=== PATIENT | female | born 2000 | race Caucasian/White ===

== ENCOUNTER → 2023-08-01 08:42 | Outpatient (CLI) | payer OTHER, MEDICAID, SELFPAY ==
--- NOTE | 2023-08-01 08:44 | DI.US.S_ITS ---
PROCEDURE: US OB >= 14 WEEKS FETUS INDICATIONS: OUTSIDE/PRIOR DATING DATA: Last menstrual period (LMP): 03/12/2023. LMP-based estimated date of delivery (BOBBY): 12/17/2023 First dating scan (date and location): 06/21/2023 Estimated date of delivery (BOBBY) from first dating scan: 12/19/2023 TECHNIQUE: Real-time scanning was performed of the fetus, with image documentation and biometric measurements. Endovaginal scanning: None COMPARISON: None. FINDINGS: General: A single living intrauterine gestation is present. Presentation: Variable. Placenta: Placental position is posterior , without previa. Amniotic fluid index: 12.8 cm, normal range is 5-24 cm. Single deepest vertical pocket is 3.8 cm heart rate: 153 beats per minute. Maternal cervical canal: 3.6 cm long. Normal lower limit is 2.5 cm. biometrics: Biparietal diameter: 4.6 cm, 20 week 0 day Head circumference: 17.2 cm, 19 week 5 day Abdominal circumference: 15.0 cm, 20 week 2 day Femur length: 3.1 cm, 19 week 4 day Clinically estimated gestational age: 20 week 2 day Composite gestational age from present scan: 19 week 6 day Estimated weight and percentile: 321 g, 26 percentile Anatomic survey: Neuro: Ventricles are non-dilated at less than 10 mm. Cisterna magna is normal at 3-11 mm. Cerebellum is normal in size and morphology. Nuchal skin fold: Normal at less than 6 mm between 14-21 weeks gestational age. Face: Nose and lips, facial profile are normal. Spine: No evidence for spina bifida. Heart: 4-chambered heart is present, with normal ventricular outflow tracts. Diaphragm: Diaphragm is intact. Stomach: Left-sided stomach is present. Kidneys: No hydronephrosis. Normal is less than 5 mm in 2nd trimester, less than 7 mm in 3rd trimester. Cord: 3-vessel cord has orthotopic insertion. Bladder: Normal in size. Extremities: All 4 extremities identified. IMPRESSION: Single live intrauterine consistent with 19 week 6 day gestation by current ultrasound Approved by: Julian Odell M.D. on 08/01/2023 at 13:29
== END ==
PROVIDERS: Referring Provider Student in an Organized Health Care Education/Training Program; Visit Provider Student in an Organized Health Care Education/Training Program
DX: Z34.02 Encounter for supervision of normal first pregnancy, second trimester (principal); Z3A.19 19 weeks gestation of pregnancy
CPT/HCPCS: 76811

== ENCOUNTER 2023-08-26 09:20 | Outpatient (CLI) | payer OTHER, SELFPAY ==
[2023-08-26 09:58] LABS: Appearance Urine UA CLEAR; Bilirubin Urine UA NEGATIVE (NEGATIVE); Color Urine UA YELLOW; Glucose Urine UA NEGATIVE (Negative); Ketones Urine UA TRACE (NEGATIVE); Leukocyte Esterase Urine UA NEGATIVE (NEGATIVE); Nitrite Urine UA NEGATIVE (Negative); Occult Blood Urine UA NEGATIVE (Negative); Protein Urine UA NEGATIVE (Negative); Specific Gravity Urine UA 1.025 (1.000-1.035)
[2023-08-26 10:00] LABS: pH Urine UA 5.5 (4.5-8.0)
[2023-08-26 10:07] LABS: Bacteria Urine Moderate (10-30); Culture Indicated Urine Specimen Cultured; RBC Urine 1-5/HPF (0-5/HPF); Squamous Epithelial Cell Urine 5-10 /HPF (0-5/HPF); WBC Urine 5-10/HPF (0-5/HPF)
== END 2023-08-26 10:25 | disposition home or self-care (01) ==
LOC: LABOR 10:28 → OB 09-01 16:01
PROVIDERS: Referring Provider Obstetrics & Gynecology; Visit Provider Obstetrics & Gynecology
DX: O60.02 Preterm labor without delivery, second trimester (principal); Z3A.23 23 weeks gestation of pregnancy
CPT/HCPCS: 59025; 81001; 87086; G0378; G0379

== ENCOUNTER → 2023-09-21 12:41 | Outpatient (CLI) | payer OTHER, SELFPAY ==
[2023-09-21 15:07] LABS: Hematocrit 35.9 % (36-46); Hemoglobin 12.6 g/dL (12.0-16.0)
[2023-09-21 15:36] LABS: GTT (PREG) 1 Hour PP 50gm Dose 105 mg/dL (76-139)
== END ==
PROVIDERS: Referring Provider Student in an Organized Health Care Education/Training Program; Visit Provider Student in an Organized Health Care Education/Training Program
DX: Z34.02 Encounter for supervision of normal first pregnancy, second trimester (principal)
CPT/HCPCS: 36415; 82950; 85014; 85018

== ENCOUNTER 2023-11-07 20:52 | Outpatient (CLI) | payer OTHER, SELFPAY | END 2023-11-07 22:38 | disposition home or self-care (01) | LOC: OB 11-10 15:45 | PROVIDERS: PCP Student in an Organized Health Care Education/Training Program; Referring Provider Obstetrics & Gynecology; Visit Provider Obstetrics & Gynecology | DX: O36.8130 Decreased fetal movements, third trimester, not applicable or unspecified (principal); Z3A.34 34 weeks gestation of pregnancy | CPT/HCPCS: 59025; G0378; G0379 ==

== ENCOUNTER → 2023-11-10 09:28 | Outpatient (CLI) | payer OTHER, SELFPAY ==
[2023-11-25 12:42] LABS: Strep Grp B PCR NEG for Grp B Strep
== END ==
PROVIDERS: PCP Student in an Organized Health Care Education/Training Program; Visit Provider Student in an Organized Health Care Education/Training Program
DX: Z34.93 Encounter for supervision of normal pregnancy, unspecified, third trimester (principal); Z3A.34 34 weeks gestation of pregnancy
CPT/HCPCS: 87653

== ENCOUNTER 2023-12-25 18:07 | Inpatient (IN) | payer OTHER, SELFPAY ==
[2023-12-25 18:20] VITALS: BP 133/86
--- NOTE | 2023-12-25 18:49 | PM.OBHP.1 ---
OB HPI Date/Time Date of admission: 12/25/23 Date Patient Seen: 12/25/23 Time Patient Seen: 18:49 History of Present Condition Chief complaint: induction : 1 Para: 0 Estimated Date of Delivery: 12/17/23 Estimated Gestational Age (weeks): 41w1d Narrative: Dayanna Phelps is a 23 year old at 41w1d presenting for medical induction for late term . has been uncomplicated. She has not been meron at home and has not any vaginal bleeding or discharge. Bedside ultrasound done 72 hours ago showed cephalic presentation with heart rate in the 120s, movement was seen, tone was good and breathing was visualized. On that imaged spine was and 2 maternal left with legs on maternal right. head position LOT. She is GBs negative. Indications Indication for induction OB: post dates History of Present care: good care Dating criteria: LMP confirmed by 1st trimester US Ultrasounds: normal 1st trimester US and normal mid trimester US Obstetrical complications: none Medical complications: none Preadmission Labs Blood type: O (+) positive -: Antibody screen: negative, GBS status: negative, HBsAG: negative, HIV: negative and RPR/VDLR: negative -: Rubella: immune and Varicella: immune HCAB: negative PAP: Normal Cell-free DNA: [id number] negative ( neg for trisomy 21, 19, 13), male sex 1 hr GTT: 105 PFSH Medical History (Updated 10/10/23 @ 10:18 by Vonnie Almanza MD) Actinic keratosis (~2009) Chlamydia (~2017) Panic anxiety syndrome Laceration of face Anxiety Major depression, single episode Surgical History (Updated 06/23/23 @ 14:04 by Trista Cordova RN) [place] teeth extracted Family History (Updated 06/23/23 @ 14:06 by Trista Cordova RN) Grandmother Coagulopathy Social History marital status: unmarried,living together number of children: 0 household members: significant other lives independently: Yes caregiver/support person: No housing: house pets and animals: Yes (cat & dog, aware of toxo precautions) education level: high school 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) current occupational exposures/hazards: No special rebeka needs: No travel history: recent (domestic only) seatbelt use: always helmet use: Yes water heater temp set < 120 deg: Yes working smoke detector in home: Yes fire extinguisher in home: Yes carbon monox detector in home: Yes firearms in home: Yes do you feel safe at home: Yes Smoking Status: Never smoker Tobacco: How many years used: 3 second hand exposure: No alcohol intake: former (~3/week when not ) substance use type: does not use (not since teenage) during the past year weight has: remained stable well-balanced diet: daily or most days daily servings fruits/ve or more times/day caffeine: Yes Type(s) of exercise: walking, other (hiking) and running frequency: daily Meds Home Medications and Allergies Home Medications Medication Instructions Recorded Confirmed Type vitamin-ferrous sulfate tab PO 06/23/23 12/22/23 History 27 mg iron-folic acid 0.8 mg tablet Allergies Allergy/AdvReac Type Severity Reaction Status Date / Time No Known Drug Allergies Allergy Verified 12/22/23 08:59 Review of Systems Review of Systems Narrative: No VB no Ernst No contractions No discharge No LOF OB Exam Vital signs Blood Pressure: 133/86 Pulse Rate: 88 Temperature: 36.5 F Narrative Exam Narrative: Gen: well appearing, NAD Psych: Appropriate mood and affect CV: warm and well perfused Pulm: breathing comfortbaly on RA : nml external genitalia SVE: fingertip/thick/high/posterior/firm, Sykes score 0, unfavorable cervix FHT: Baseline- 120 Accels: present Decelerations: none TOCO: occasional, irregular Cat I Assessment and Plan Assessment and Plan Assessment and Plan narrative: 23-year-old at 40 weeks 1d GA by LMP consistent with 1st trimester dating ultrasound presenting for post dates induction. Patient score unfavorable, we will start Cytotec. Consider trying to place Morrell balloon in the a.m. after a few doses of Cytotec 1. mIOL: -start vaginal Cytotec 25 mcg per dose -type and screen and CBC collected -intermittent monitoring, reactive and reassuring at this time -GBS negative, no PPX needed -epidural available if desired, currently unsure of plans -significant other Tommie at bedside
[2023-12-25 19:05] LABS: Add Manual Diff / Slide Review NO; Basophils Absolute Auto 100 /uL (0-100); Basophils Percent Auto 0.5 % (0-2); Eosinophils Absolute Auto 200 /uL (0-450); Hematocrit 38.5 % (36-46); Hemoglobin 13.3 g/dL (12.0-16.0); Lymphocytes Absolute Auto 2000 /uL (1100-4500); Mean Corpuscular HGB Conc 34.5 % (30-36); Mean Corpuscular Hemoglobin 31.2 PG (26-34); Mean Corpuscular Volume 90.3 fL (80-100); Monocytes Absolute Auto 900 /uL (0-900); Monocytes Percent Auto 6.1 % (3-14); Neutrophils Absolute Auto 11500 /uL (1500-7000); Neutrophils Percent Auto 78.4 % (50-75); Platelet Count 225 X10^3/uL (150-400); Red Blood Cell Count 4.26 X10^6/uL (4.0-5.2); Red Cell Distribution Width 13.4 % (11.6-14.8); White Blood Cell Count 14.6 X10^3/uL (4.5-11.0)
[2023-12-25 19:13] VITALS: BP 133/86; PULSE 88; TEMP 2.5; TEMP 36.5
[2023-12-25] MEDS: miSOPROStoL 25 MCG TABLET 50 MCG SL (19:58)
[2023-12-25] MEDS: ACETAMINOPHEN 325 MG TABLET 650 MG PO (23:39)
[2023-12-25] MEDS: ZOLPIDEM 5 MG TABLET PO (23:39)
[2023-12-25] MEDS: ONDANSETRON 4 MG/2 ML INJ IV (23:54)
--- NOTE | 2023-12-26 02:08 | PM.AN.REGBLK ---
Regional Block Pre-procedure Procedure: Continuous Lumbar Epidural for L&D Attending OB provider: Deandra Wells PMH/ROS narrative: at 41+ IOL for post dates. No medical or obstetric complicaitons. ASA Class: II Labs: Hct 38.5 % (36-46) 12/25/23 18:35 Plt Count 225 X10^3/uL (150-400) 12/25/23 18:35 Medications: Current Medications Generic Name Dose Route Start Last Admin Trade Name Freq PRN Reason Stop Dose Admin Acetaminophen 650 mg 12/25/23 18:33 12/25/23 23:39 Acetaminophen 325 Mg Tablet PO 650 mg Q4HR PRN Administration Fever/Mild Pain (1-3) Calcium Carbonate 500 mg 12/25/23 18:33 Calcium Carbonate 500 Mg Tab PO Q2H PRN Dyspepsia Hydroxyzine HCl 50 mg 12/25/23 23:04 Hydroxyzine Hcl 25 Mg Tablet PO Q6H PRN Sleep Lactated Ringer's 1,000 mls @ 100 mls/hr 12/25/23 18:45 Lactated Ringers IV CONT JANIA Misoprostol 25 mcg 12/25/23 18:45 Misoprostol 25 Mcg Tablet VAG Q4H JANIA Misoprostol 50 mcg 12/25/23 21:00 12/25/23 19:58 Misoprostol 25 Mcg Tablet SL 50 mcg QID JANIA Administration Morphine Sulfate 2 mg 12/25/23 18:33 Morphine 2 Mg/Ml Inj IV Q4HR PRN Pain, Moderate (4-6) Ondansetron HCl 4 mg 12/25/23 18:35 12/25/23 23:54 Ondansetron 4 Mg/2 Ml Inj IV 4 mg Q6HR PRN Administration Nausea And Vomiting Ondansetron HCl 4 mg 12/25/23 18:35 Ondansetron 4 Mg Odt SL Q6HR PRN Nausea Zolpidem Tartrate 5 mg 12/25/23 23:11 12/25/23 23:39 Zolpidem 5 Mg Tablet PO 5 mg BEDTIME PRN Administration Sleep Allergies: Allergies Allergy/AdvReac Type Severity Reaction Status Date / Time No Known Drug Allergies Allergy Verified 12/22/23 08:59 Procedure Insertion date: 12/26/23 Insertion time: 02:27 Prep/Local: betadine x3 and 1% lidocaine Interspace: L3-4 Patient position: sitting Needle: 18 gauge Hustead (CSE: 27g pencan through Hustead, clear CSF, 1mL 0.25% PF bupiv) Loss of resistance with: saline NATALEE at (cm): 4 Catheter placed at SKIN (cm): 10 Catheter in SPACE (cm): 6 Insertion: No CSF, No Blood, No Paresthesia with insertion, No Paresthesia with injection and No Test dose reaction Initial Medications TEST DOSE time: 02:28 TEST DOSE: 1.5% lidocaine with epinephrine 1:200k (mL): 3 BOLUS DOSE time: 02:36 BOLUS DOSE (mL): 4 BOLUS DOSE med: other (infusate) Infusion INFUSION: 0.125% bupivacaine and with fentanyl 2 mcg/mL Initial rate (mL/hr): 8 Subsequent interventions: PCEA 8+4 Post-procedure Anesthesia date START: 12/26/23 Anesthesia time START: 02:15 Anesthesia date END: 12/26/23 Anesthesia time END: 10:04 Post-procedure Anesthesia Assessment: Yes CV function: HR/BP stable, Yes Resp function: RR/sat/airway adequate, Yes Post-op hydration adequate, Yes Pain control adequate, Yes Nausea & vomiting absent, Yes Temperature > 36 C, Yes Mental status appropriate and No Anesthesia complications
--- NOTE | 2023-12-26 06:46 | P.PNOB_ITS ---
Date/Time Date Patient Seen: 12/26/23 Time Patient Seen: 06:30 Pain Control Pain control: epidural Pelvic Exam Dilation (cm): 9 Effacement (%): 100 station: -1 Amniotic membrane status: Ruptured Comments: SVE: 06/12/1/ bulging bag. Cervix gone on maternal left, cervix remains on maternal right only. No edema noted. AROM performed at 6:32am. Procedure note: Discussed risks of AROM with pt, pt agreeable. Large bulging bag palpated on exam, head well engaged. Membranes ruptured wtih [place]. Head remained well engaged. clear fluids. No sign of cord on exam. FHT reassuring initially after. Attempted to turn to maternal right to assist with cervical change but deceleration noted so moved back to center. decels resolved and FHT reassuring since then Contractions Contractions on admission: irregular Monitor mode: External Contraction frequency (min): 2 Contraction pattern: Regular Status status: Category ll Heart Rate Baseline: 120 Monitor Accelerations: Present Monitor Decelerations: Late and Variable Monitor Variability: Moderate Comments: Baseline- 120 Aceels- present Decels- Present, variables and rare lates with good variability in between, not occuring with every contraction, decelerations are shallow TOCO- every 1-2 min, regular CAt II Assessment and Plan Assessment: active labor Plan: continuous present management Comments: 23 year old at 41w2d presenting for medical induction for late term pregn [place]. Induction was started with one dose of oral cytotec and she began meron. She had an epidural placed overnight. SHe has been contractng regularly and making good cervical change. 1. mIOL for post-dates : - s/p 1 dose oral miso - Epidural in place for pain control - FHT showing variable decelerations wtih contractions but reassuring between - Continue expectant management for now - GBS negative, no ppx needed
[2023-12-26] MEDS: FENT 2MCG/ML BUPIV 0.125% EPI 200 MCG/100 ML PLAST..BAG 8 MCG EPIDURAL (08:00)
[2023-12-26] MEDS: OXYTOCIN PREMIX 30 UNIT/500 ML PLAST..BAG 250 UNIT IV (10:00)
--- NOTE | 2023-12-26 10:40 | PM.OBPRVD ---
Events: Labor Induction (with SL cytotec) Labor & Delivery Delivery date: 12/26/23 Cervical ripening method: per misoprostal protocol Induction method: AROM Delivery monitor: external FHT Route of delivery: Episiotomy description: None L&D Laceration Description: Vaginal - 1st Degree Delivery repair: vicryl Estimated blood loss (mL): 250 Anesthesia Type: Epidural Narrative: 23 y/o G1 now P admitted for [facility] for late term . FHR were reassuring, Category 1. She did not require GBS prophylaxis as her GBS was negative. was uncomplicated. Induction was started with 1 dose of sublingual misoprostol. AN epidural was placed for anesthesia. The patient developed regular contraction patterns without additional dosing of misoprostol. Rupture of membranes was completed approximately 12 hours later with clear fluid. heart tracing was reassuring during this time. She continued to progress and reached complete cervical dilation. Pushing was initiated. heart tracing did show variable decelerations which improved with position changes. When getting close to delivery heart tracing did show baseline tachycardia to the mid 160s to low 170s but variability was moderate and she was progressing well. was delivered out of JACEY position. A tight nuchal cord was noted and delivered through. After delivery of the body a body cord was also noted and reduced after delivery. The infant's body was then delivered in the usual manner without difficulty. The cord was clamped and cut after 60 second delay. The infant was placed on maternal abdomen. APGARs were 8 and 9 at one and five minutes respectively. The placenta delivered intact with 3 vessel cord and marginal cord insertion. Pitcin was started after deliveyr of the . Uterine massage was performed and fundus was found to be firm. EBL= 250mL. The perineum was inspected and a 1st degree posterior vaginal laceration was noted. This was repaired in the usual fashion with 3-0 vicryl. Pt tolerated the procedure well. Plan for aftercare: Routine care
[2023-12-26] MEDS: ACETAMINOPHEN 325 MG TABLET 650 MG PO ×2 (12:10→17:58)
[2023-12-26] MEDS: DERMOPLAST SPRAY 20% 60 ML 1 SPRAY TOP (12:10)
[2023-12-26] MEDS: KETOROLAC 30 MG/ML VIAL 15 MG IV (14:31)
[2023-12-26] MEDS: IBUPROFEN 600 MG TABLET PO (20:40)
[2023-12-27] MEDS: IBUPROFEN 600 MG TABLET PO ×2 (03:11→09:35)
[2023-12-27] MEDS: ACETAMINOPHEN 325 MG TABLET 650 MG PO ×2 (03:11→09:35)
[2023-12-27 06:16] LABS: Add Manual Diff / Slide Review NO; Basophils Absolute Auto 100 /uL (0-100); Basophils Percent Auto 0.9 % (0-2); Eosinophils Absolute Auto 300 /uL (0-450); Eosinophils Percent Auto 2.1 % (2-4); Hematocrit 30.2 % (36-46); Hemoglobin 10.6 g/dL (12.0-16.0); Lymphocytes Absolute Auto 2200 /uL (1100-4500); Lymphocytes Percent Auto 15.1 % (25-40); Mean Corpuscular HGB Conc 35.2 % (30-36); Mean Corpuscular Hemoglobin 31.8 PG (26-34); Mean Corpuscular Volume 90.3 fL (80-100); Monocytes Absolute Auto 1000 /uL (0-900); Monocytes Percent Auto 6.8 % (3-14); Neutrophils Absolute Auto 11100 /uL (1500-7000); Neutrophils Percent Auto 75.1 % (50-75); Platelet Count 176 X10^3/uL (150-400); Red Blood Cell Count 3.34 X10^6/uL (4.0-5.2); Red Cell Distribution Width 13.3 % (11.6-14.8); White Blood Cell Count 14.7 X10^3/uL (4.5-11.0)
--- NOTE | 2023-12-27 09:18 | PM.OBDS.1 ---
Discharge Providers Provider Date of admission: 12/25/23 18:07 Discharge Date: 12/27/23 Primary care physician: Vonnie Almanza MD Consults: 12/27/23 10:35 Consult to Meter Changes Records Clerk Routine Comment: Discharge provider: Nicki Jimenez MD Summary Hospital Course Date Patient Seen: 12/27/23 Diagnoses: 41w2d gestation GBS negative Rh positive Hospital Course: The pt presented for post-dates IOL. She received cytotec for IOL. She had an epidural for pain control. AROM was performed with clear fluid present. She progressed to complete and had an uncomplicated of a viable baby boy. A 1st degree posterior vaginal laceration was repaired. , there were no complications. At the time of discharge she was voiding, ambulating, and passing flatus without difficulty. Her lochia was decreasing appropriately. Her pain was well controlled. She was , working on latch with the nipple shield. She will f/u in 6 weeks for check. Peripartum Data Infant Delivery Method: Natural Vaginal Laceration Description: Vaginal - 1st Degree Episiotomy description: None Procedures: Spontaneous vaginal delivery complications: none [place] 1: Gender: Male Disposition of : home Time Spent with Patient Time attestation: Total time spent providing and/or coordinating discharge services: Objective Labs 12/27/23 06:08 Labs: Laboratory Results - last 24 hr 12/27/23 06:08 WBC 14.7 H RBC 3.34 L Hgb 10.6 L Hct 30.2 L MCV 90.3 MCH 31.8 MCHC 35.2 RDW 13.3 Plt Count 176 Neut % (Auto) 75.1 H Lymph % (Auto) 15.1 L [place] % (Auto) 6.8 Eos % (Auto) 2.1 Baso % (Auto) 0.9 Neut # (Auto) 00024 H Lymph # (Auto) 2200 [place] # (Auto) 1000 H Eos # (Auto) 300 Baso # (Auto) 100 Exam Narrative Exam Narrative: Gen: NAD, sitting comfortably in bed, appears well CV: RRR, no murmurs Resp: clear to auscultation bilaterally Abd: soft, appropriately tender, fundus firm and below the umbilicus, nondistended Ext: no edema Discharge Plan Discharge Plan Patient Disposition: Home Discharge orders & Medications Prescriptions: New acetaminophen 325 mg Tablet 650 mg PO Q6HR PRN (Reason: Pain, Mild (1-3)) Qty: 30 0RF ibuprofen 600 mg Tablet 600 mg PO Q6HR PRN (Reason: Fever/Mild Pain (1-3)) Qty: 30 0RF docusate calcium [Stool Softener (docusate fazal)] 240 mg capsule 240 mg PO DAILY Qty: 30 0RF Continued vit-ferrous sulfat-FA 27 mg iron- 0.8 mg tablet PO Follow up/Referrals: Deandra Wells MD [Physician] - 6 Weeks (6 week Appt w/ Dr. Wells: Tuesday, January 31 @ 11am) Diet/Activity/Treatments Diet: Diet as Tolerated and Regular Skin/Wound/Dressing Care Report to your healthcare provider any signs of infection, such as:: chills, fever, increased pain and unusual drainage Visit Report/Discharge Packet Instructions: DI for Labor and Delivery, Vaginal Stand Alone Forms: Discharge: Care, Patient Portal/API, Stroke Signs & Symptoms Discharge Data Primary Care Provider: Vonnie Almanza Discharges patient from system. Discharge Date/Time: 12/27/23 12:10
[2023-12-27] MEDS: PRENATAL VIT,CALC/IRON/FOLIC 1 TABLET 1 TAB PO (09:35)
== END 2023-12-27 12:10 | disposition home or self-care (01) | DRG 807 ==
PROVIDERS: Admitting Provider Family Medicine; PCP Student in an Organized Health Care Education/Training Program; Referring Provider Family Medicine; Visit Provider Family Medicine
DX: O48.0 Post-term pregnancy (principal); Z37.0 Single live birth; Z3A.41 41 weeks gestation of pregnancy; O70.0 First degree perineal laceration during delivery; O76 Abnormality in fetal heart rate and rhythm complicating labor and delivery
CPT/HCPCS: 36415; 59050; 59200; 59400; 59409; 85025; 86850; 86900; 86901; G0379; J1885; J2405; J2590